=== PATIENT | female | born 1985 ===

== ENCOUNTER 2017-08-12 07:14 | Emergency (ER) | payer SELFPAY ==
[2017-08-12] MEDS ORDERED: CLINDAMYCIN 150 MG CAP PO ONE (07:55)
[2017-08-12] MEDS ORDERED: IBUPROFEN 600 MG TAB PO ONE (07:55)
[2017-08-12 08:00] VITALS: BP 119/93
--- NOTE | 2017-08-12 08:06 | ER Report ---
History and Physical Time Seen By MD: 07:30 Hx. of Stated Complaint: dental pain for 2 weeks HPI/ROS 32-year-old female presents to the emergency department complaining of left upper and lower posterior tooth pain ongoing and worsening for the past 2 weeks. She does not have a dentist. She states that she knows she needs to go to the dentist, but was waiting for the money she was set to get back from taxes. She plans to go to a dentist this week. She is able to take by mouth. No fever chills. No pain in her throat or posterior pharynx. No chest pain Remainder of the 14 system rev: Yes Allergies: Coded Allergies: No Known Drug Allergies (Unverified , 08/12/17) Home Meds Active Scripts Ibuprofen (IBUPROFEN) 600 Mg Tablet, 1 TAB PO Q6H for 30 Days, TAB Prov:FLY NGUYEN MD 08/12/17 Clindamycin Hcl (CLINDAMYCIN HCL) 300 Mg Capsule, 300 MG PO Q8H, #30 CAPSULE Prov:FLY NGUYEN MD 08/12/17 Reviewed Nurses Notes: Yes Old Medical Records Reviewed: Yes Smoking Status: Current: Every Day Smoker Exposure to Second Hand Smoke?: Yes Constitutional Vital Sign - Last 24 Hours 08/12/17 08/12/17 08/12/17 07:18 07:30 08:00 Temp 98.7 Pulse 68 65 63 Resp 18 B/P (MAP) 133/86 120/83 (95) 119/93 (102) Pulse Ox 98 96 97 O2 Delivery Room Air Physical Exam General appearance: Alert no distress. HEENT: TTP of the left posterior upper and lower molars. No abscess. Evidence of dental decay/carries. No trismus. Respiratory: Chest is non tender, lungs are clear to auscultation. Cardiac: Regular rate and rhythm, no murmurs DIFFERENTIAL DIAGNOSIS: After history and physical exam differential diagnosis was considered for dental abscess, dental carry Medical Decision Making ED Course/Re-evaluation ED Course 32-year-old female who presented to the emergency department with both left upper and lower or pain in her most posterior molars. The pain has been ongoing for the past 2 weeks. She has not seen a dentist for the pain, but plans to this week. I performed a local dental block on the affected teeth. I gave her ibuprofen and a dose of clindamycin in the emergency department, and wrote her prescriptions to go home for both. Procedure Dental block: 10ml of 1%lidocaine without epi was used to perform a local block of both the upper and lower left most posterior molars. The patient tolerated the procedure well. Decision to Disposition Date: Aug 12, 2017 Decision to Disposition Time: 08:07 Depart Departure Latest Vital Signs Vital Signs Date Time Temp Pulse Resp B/P (MAP) Pulse Ox O2 Delivery O2 Flow Rate FiO2 08/12/17 08:00 63 119/93 (102) 97 08/12/17 07:18 98.7 18 Room Air Impression: Primary Impression: Tooth pain Condition: Improved Disposition: HOME OR SELF-CARE New Scripts Ibuprofen (IBUPROFEN) 600 Mg Tablet 1 TAB PO Q6H for 30 Days, TAB Prov: FLY NGUYEN MD 08/12/17 Clindamycin Hcl (CLINDAMYCIN HCL) 300 Mg Capsule 300 MG PO Q8H, #30 CAPSULE Prov: FLY NGUYEN MD 08/12/17 Departure Forms: Medications Reconciliation, Patient Portal Information, ER Transition Record Patient Instructions: Toothache (ED) FLY NGUYEN MD Aug 12, 2017 08:06
[2017-08-12] MEDS ORDERED: IBUP600T22 PO (08:09)
[2017-08-12] MEDS ORDERED: CLIN300C99 PO (08:09)
== END 2017-08-12 08:29 | disposition home or self-care (01) ==
LOC: ER 07:21
DX: K08.89 Other specified disorders of teeth and supporting structures (principal)
CPT/HCPCS: 99283

== ENCOUNTER 2018-06-13 17:37 | Inpatient (IN) | payer SELFPAY ==
[~2018-06-13] VITALS: Ht 157.5 cm; Wt 54.4 kg
[~2018-06-13 17:37] MED LIST: CLIN300C99 PO; IBUP600T22 PO
--- NOTE | 2018-06-13 17:47 | ER Report ---
History and Physical Time Seen By MD: 17:47 (TYRONE FAN) HPI/ROS CHIEF COMPLAINT: Headache HISTORY OF PRESENT ILLNESS: This is a 32 to female presents to the emergency department for a headache. Patient states that her granddaughter was diagnosed with influenza last week, since then the patient has had nausea which started Saturday, since then she's had a progressively worsening headache. She's also had diarrhea. Patient states this is the worst headache she's ever had. Patient is tearful. She's had aches and chills. Fevers at home. She's been dosing with ibuprofen and Tylenol. No rashes, no meningismus. REVIEW OF SYSTEMS: Constitutional: As above. Eyes: No discharge. ENT: No sore throat. Cardiovascular: No chest pain, no palpitations. Respiratory: No cough, no shortness of breath. Gastrointestinal: As above. Genitourinary: No hematuria. Musculoskeletal: No back pain. Skin: No rashes. Neurological: As above. (TYRONE FAN) Allergies: Coded Allergies: Penicillins (Verified Allergy, Severe, NAUSEA/VOMITING, 06/13/18) morales (Verified Allergy, Severe, ANAPHYLAXIS, 06/13/18) Home Meds Discontinued Scripts Ibuprofen (IBUPROFEN) 600 Mg Tablet, 1 TAB PO Q6H for 30 Days, TAB Prov:FLY NGUYEN MD 08/12/17 Clindamycin Hcl (CLINDAMYCIN HCL) 300 Mg Capsule, 300 MG PO Q8H, #30 CAPSULE Prov:FLY NGUYEN MD 08/12/17 Past Medical/Surgical History Patient has a past medical and surgical history of . (TYRONE FAN) Reviewed Nurses Notes: Yes (TYRONE FAN) Smoking Status: Current: Every Day Smoker Exposure to Second Hand Smoke?: Yes (TYRONE FAN) Constitutional Vital Sign - Last 24 Hours 06/13/18 06/13/18 06/13/18 06/13/18 17:37 17:47 17:55 18:00 Temp 99.4 Pulse 100 108 Resp 16 B/P (MAP) 107/79 (88) 107/79 97/69 (78) Pulse Ox 98 98 O2 Delivery Room Air 06/13/18 06/13/18 06/13/18 06/13/18 18:07 18:30 18:37 18:42 Pulse 101 99 ??? B/P (MAP) 99/67 (78) Pulse Ox 96 96 06/13/18 06/13/18 06/13/18 06/13/18 19:00 19:12 19:30 19:42 Pulse 96 117 Resp 23 B/P (MAP) 99/63 (75) 98/64 (75) Pulse Ox 93 06/13/18 06/13/18 06/13/18 06/13/18 20:00 20:12 20:17 20:30 Pulse 105 ??? B/P (MAP) 97/65 (76) ???/??? (1665) Pulse Ox 89 06/13/18 06/13/18 06/13/18 06/13/18 20:32 20:47 20:47 20:58 Pulse ? 104 B/P (MAP) 89/56 (67) Pulse Ox 89 06/13/18 06/13/18 06/13/18 06/13/18 21:02 21:15 21:16 21:16 Pulse ??? 105 B/P (MAP) 91/57 (68) Pulse Ox 85 O2 Delivery Room Air O2 Flow Rate 2.0 06/13/18 06/13/18 06/13/18 06/13/18 21:17 21:32 21:37 21:50 Pulse ? 102 Resp 17 B/P (MAP) 93/57 (69) Pulse Ox 95 95 O2 Delivery Nasal Cannula O2 Flow Rate 2 06/13/18 06/13/18 06/13/18 06/13/18 21:52 22:00 22:07 22:22 Pulse 109 99 100 Resp 14 7 20 B/P (MAP) 94/64 (74) Pulse Ox 97 96 96 06/13/18 06/13/18 06/13/18 06/13/18 22:30 22:37 22:52 23:00 Pulse 91 98 Resp 18 19 B/P (MAP) 98/64 (75) 100/65 (77) Pulse Ox 96 97 06/13/18 06/13/18 06/13/18 06/13/18 23:07 23:22 23:27 23:30 Pulse 96 95 92 Resp 19 9 10 B/P (MAP) 102/71 (81) Pulse Ox 94 96 96 06/13/18 06/13/18 06/14/18 06/14/18 23:42 23:57 00:00 00:12 Pulse ? B/P (MAP) ???/??? (1665) 06/14/18 06/14/18 06/14/18 06/14/18 00:27 00:32 00:47 01:00 Pulse ? B/P (MAP) 120/78 (92) 06/14/18 06/14/18 06/14/18 01:02 01:30 01:32 Pulse 97 98 Resp 20 21 B/P (MAP) 112/76 (88) Pulse Ox 98 94 Intake and Output 06/13/18 06/13/18 06/14/18 15:00 23:00 07:00 Intake Total 2000 ml Balance 2000 ml (LULA WILD MD) Physical Exam General Appearance: The patient is alert, has no immediate need for airway protection and no signs of toxicity. Eyes: Pupils equal and round no pallor or injection. EOMs intact. ENT, Mouth: Mucous membranes are moist. Respiratory: There are no retractions, lungs are clear to auscultation. Cardiovascular: Regular rate and rhythm. Gastrointestinal: Abdomen is soft and non tender, no masses, bowel sounds normal. Neurological: Alert and oriented 4. Moving all extremities. Following all commands. No focal neuro deficits. Skin: Warm and dry, no rashes. Musculoskeletal: Neck is supple non tender. Extremities are nontender, nonswollen and full range of motion. DIFFERENTIAL DIAGNOSIS: After history and physical exam differential diagnosis was considered for headache including but not limited to subarachnoid hemorrhage, migraine headache, tension headache and infectious causes such as meningitis, pharyngitis and sinusitis. (TYRONE FAN-) Medical Decision Making Data Points Result Diagram: 06/14/18 0700 06/14/18 0700 Laboratory Hematology Test 06/13/18 17:43 06/13/18 17:58 06/13/18 19:56 Urine Color Yellow Urine Clarity Clear Urine pH 5.0 pH (4.8-9.5) Urine Specific [place] 1.021 Urine Protein Negative mg/dL (NEGATIVE) Urine Glucose (UA) Negative mg/dL (NEGATIVE) Urine Ketones Negative mg/dL (NEGATIVE) Urine Blood Small (NEGATIVE) Urine Nitrite Negative (NEGATIVE) Urine Bilirubin Negative (NEGATIVE) Urine Urobilinogen 4.0 mg/dL (0.2-1.9) Urine Leukocyte Esterase Trace (NEGATIVE) Urine RBC 19 /HPF (0-2/HPF) Urine WBC 33 /HPF (0-5/HPF) Urine Squamous Epithelial Cells Many /LPF (</=FEW) Urine Bacteria Moderate /HPF (NONE-FEW) Urine Mucus None /HPF (NONE-FEW) Red Blood Count 4.66 M/uL (4.17-5.56) Mean Corpuscular Volume 66.1 fL (80.0-96.0) Mean Corpuscular Hemoglobin 20.0 pg (26.0-33.0) Mean Corpuscular Hemoglobin Concent 30.2 g/dL (32.0-36.0) Red Cell Distribution Width 18.3 % (11.5-14.5) Mean Platelet Volume 9.2 fL (7.2-11.1) Neutrophils (%) (Auto) % (39.4-72.5) Lymphocytes (%) (Auto) % (17.6-49.6) Monocytes (%) (Auto) % (4.1-12.4) Eosinophils (%) (Auto) % (0.4-6.7) Basophils (%) (Auto) % (0.3-1.4) Nucleated RBC Relative Count (auto) /100WBC Neutrophils # (Auto) K/uL (2.0-7.4) Lymphocytes # (Auto) K/uL (1.3-3.6) Monocytes # (Auto) K/uL (0.3-1.0) Eosinophils # (Auto) K/uL (0.0-0.5) Basophils # (Auto) K/uL (0.0-0.1) Nucleated RBC Absolute Count (auto) K/uL Neutrophils % (Manual) 86 % (39.4-72.5) Band Neutrophils % 6 % Lymphocytes % (Manual) 4 % (17.6-49.6) Monocytes % (Manual) 4 % (4.1-12.4) Eosinophils % (Manual) 0 % (0.4-6.7) Basophils % (Manual) 0 % (0.3-1.4) Platelet Estimate Normal Hypochromasia 3+ Poikilocytosis 1+ Anisocytosis 1+ Microcytosis 3+ Target Cells 1+ Ovalocytes 1+ [place] Cells 1+ Sodium Level 135 mmol/L (137-145) Potassium Level 3.3 mmol/L (3.5-5.0) Chloride Level 102 mmol/L (98-107) Carbon Dioxide Level 25 mmol/L (22-31) Blood Urea Nitrogen 27 mg/dl (7-18) Creatinine 0.90 mg/dl (0.52-1.04) Glomerular Filtration Rate Calc > 60.0 Random Glucose 106 mg/dl (75-110) Calcium Level 9.0 mg/dl (8.4-10.2) Total Bilirubin 0.6 mg/dl (0.2-1.3) Aspartate Amino Transf (AST/SGOT) 40 U/L (0-35) Alanine Aminotransferase (ALT/SGPT) 27 U/L (0-56) Alkaline Phosphatase 130 U/L (0-126) Total Protein 7.0 g/dl (6.3-8.2) Albumin 3.7 g/dl (3.5-5.0) CSF Appearance Clear (CLEAR) CSF Color Colorless (COLORLESS) CSF WBC 7 /mm3 (0-5) CSF RBC 486 /mm3 CSF Glucose 54 mg/dl CSF Total Protein 57 mg/dl (15-50) Haemophilus influenzae B Antigen Negative (NEGATIVE) Neisseria meningitidis A/Y Antigen Negative (NEGATIVE) Neisseria meningitidis C/W135 Ag Negative (NEGATIVE) N. meningitidis B/E.coli K1 Ag Negative (NEGATIVE) Group B Streptococcus Antigen Negative (NEGATIVE) Streptococcus pneumoniae Antigen Negative (NEGATIVE) Chemistry Test 06/13/18 17:43 06/13/18 17:58 06/13/18 19:56 Urine Color Yellow Urine Clarity Clear Urine pH 5.0 pH (4.8-9.5) Urine Specific [place] 1.021 Urine Protein Negative mg/dL (NEGATIVE) Urine Glucose (UA) Negative mg/dL (NEGATIVE) Urine Ketones Negative mg/dL (NEGATIVE) Urine Blood Small (NEGATIVE) Urine Nitrite Negative (NEGATIVE) Urine Bilirubin Negative (NEGATIVE) Urine Urobilinogen 4.0 mg/dL (0.2-1.9) Urine Leukocyte Esterase Trace (NEGATIVE) Urine RBC 19 /HPF (0-2/HPF) Urine WBC 33 /HPF (0-5/HPF) Urine Squamous Epithelial Cells Many /LPF (</=FEW) Urine Bacteria Moderate /HPF (NONE-FEW) Urine Mucus None /HPF (NONE-FEW) White Blood Count 23.7 k/uL (4.5-11.0) Red Blood Count 4.66 M/uL (4.17-5.56) Hemoglobin 9.3 g/dL (12.0-16.0) Hematocrit 30.8 % (34.0-47.0) Mean Corpuscular Volume 66.1 fL (80.0-96.0) Mean Corpuscular Hemoglobin 20.0 pg (26.0-33.0) Mean Corpuscular Hemoglobin Concent 30.2 g/dL (32.0-36.0) Red Cell Distribution Width 18.3 % (11.5-14.5) Platelet Count 230 K/uL (150-450) Mean Platelet Volume 9.2 fL (7.2-11.1) Neutrophils (%) (Auto) % (39.4-72.5) Lymphocytes (%) (Auto) % (17.6-49.6) Monocytes (%) (Auto) % (4.1-12.4) Eosinophils (%) (Auto) % (0.4-6.7) Basophils (%) (Auto) % (0.3-1.4) Nucleated RBC Relative Count (auto) /100WBC Neutrophils # (Auto) K/uL (2.0-7.4) Lymphocytes # (Auto) K/uL (1.3-3.6) Monocytes # (Auto) K/uL (0.3-1.0) Eosinophils # (Auto) K/uL (0.0-0.5) Basophils # (Auto) K/uL (0.0-0.1) Nucleated RBC Absolute Count (auto) K/uL Neutrophils % (Manual) 86 % (39.4-72.5) Band Neutrophils % 6 % Lymphocytes % (Manual) 4 % (17.6-49.6) Monocytes % (Manual) 4 % (4.1-12.4) Eosinophils % (Manual) 0 % (0.4-6.7) Basophils % (Manual) 0 % (0.3-1.4) Platelet Estimate Normal Hypochromasia 3+ Poikilocytosis 1+ Anisocytosis 1+ Microcytosis 3+ Target Cells 1+ Ovalocytes 1+ [place] Cells 1+ Glomerular Filtration Rate Calc > 60.0 Calcium Level 9.0 mg/dl (8.4-10.2) Total Bilirubin 0.6 mg/dl (0.2-1.3) Aspartate Amino Transf (AST/SGOT) 40 U/L (0-35) Alanine Aminotransferase (ALT/SGPT) 27 U/L (0-56) Alkaline Phosphatase 130 U/L (0-126) Total Protein 7.0 g/dl (6.3-8.2) Albumin 3.7 g/dl (3.5-5.0) CSF Appearance Clear (CLEAR) CSF Color Colorless (COLORLESS) CSF WBC 7 /mm3 (0-5) CSF RBC 486 /mm3 CSF Glucose 54 mg/dl CSF Total Protein 57 mg/dl (15-50) Haemophilus influenzae B Antigen Negative (NEGATIVE) Neisseria meningitidis A/Y Antigen Negative (NEGATIVE) Neisseria meningitidis C/W135 Ag Negative (NEGATIVE) N. meningitidis B/E.coli K1 Ag Negative (NEGATIVE) Group B Streptococcus Antigen Negative (NEGATIVE) Streptococcus pneumoniae Antigen Negative (NEGATIVE) Urinalysis Test 06/13/18 17:43 Urine Color Yellow Urine Clarity Clear Urine pH 5.0 pH (4.8-9.5) Urine Specific [place] 1.021 Urine Protein Negative mg/dL (NEGATIVE) Urine Glucose (UA) Negative mg/dL (NEGATIVE) Urine Ketones Negative mg/dL (NEGATIVE) Urine Blood Small (NEGATIVE) Urine Nitrite Negative (NEGATIVE) Urine Bilirubin Negative (NEGATIVE) Urine Urobilinogen 4.0 mg/dL (0.2-1.9) Urine Leukocyte Esterase Trace (NEGATIVE) Urine RBC 19 /HPF (0-2/HPF) Urine WBC 33 /HPF (0-5/HPF) Urine Squamous Epithelial Cells Many /LPF (</=FEW) Urine Bacteria Moderate /HPF (NONE-FEW) Urine Mucus None /HPF (NONE-FEW) (LULA WILD MD) Microbiology Microbiology Date/Time Source Procedure Growth Status 06/13/18 19:56 Cerebrospinal Fluid Gram Stain - Final Resulted 06/13/18 19:56 Cerebrospinal Fluid CSF Culture Pending Resulted (LULA WILD MD) EKG/Imaging Imaging EXAMINATION: MRI brain without IV contrast MRI brain with IV contrast HISTORY: Headache, fever, abnormal red blood cells on lumbar puncture. COMPARISON: CT head from 06/13/2018. TECHNIQUE: Multi-planar, multi-sequence brain MRI was performed before and after IV gadolinium. CONTRAST: 12 mL of IV MultiHance gadolinium. FINDINGS: Brain volume: Normal. Sagittal midline structures: Normal. Ventricles: Normal. Acute ischemic changes: No diffusion restriction present to suggest acute ischemia. Hemorrhage: No acute hemorrhage or hemosiderin staining. Masses/edema: None. Enhancement: There is no abnormal intracranial enhancement. Wilkinson-white: Negative. White matter: Normal. Vessels: Normal. Extra-axial: None. Calvarium/scalp: Negative. Skull base: Negative. Visualized sinuses/orbits: Mild patchy mucosal thickening of the bilateral ethmoid air cells. Visualized upper neck: Negative. IMPRESSION: 1. No acute infarct, hemorrhage or intracranial mass lesion. 2. Mild nonobstructive inflammation of the bilateral ethmoid air cells. Report Dictated By: Agnieszka Alvarez MD at 06/14/2018 12:49 AM (LULA WILD MD) ED Course/Re-evaluation Clinical Indication for ER IV: Hydration, IV Access ED Course 06/13/2018 8:16:07 pm Procedure: Lumbar puncture. Indication: Headache. After verbal informed consent from patient explaining the risks including infection, bleeding, and neurologic damage, a lumbar puncture was performed after the patient was prepped and draped in the usual fashion. The back was anesthetized with 1% lidocaine. Approximately 4 cc of clear fluid was obtained. Opening pressure was not obtained. There were no complications. The procedure was performed by myself, Dr. Wild was at the bedside assisting. Decision to Disposition Date: Jun 13, 2018 Decision to Disposition Time: 21:00 Turned Over The care of the patient was turned over to Dr. Wild. ADRIANE Paz I authorize my typed signature that I authenticated this report. (TYRONE FAN-) Clinical Indication for ER IV: IV Access ED Course I assumed care of this patient from Tyrone at the end of his shift and helped with management during her entire stay. Lumbar puncture done by Tyrone, with myself in direct supervision. Clear fluid, normal rate, sent for CSF analysis. Came back with elevated RBC, WBC and Protein. Gram stain was negative for organisms, but increased white cells. Appeared consistent with viral meningitis. Discussed with Dr. Maxwell. Follow-up MRI done to further rule out possibility of occult subarrachnoid hemorrhage, which was negative. 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
[2018-06-13] MEDS ORDERED: NS(*) 0.9% 1000 ML BAG 1,000 ML IV ONE ×2 (18:02→19:15)
[2018-06-13] MEDS ORDERED: ONDANSETRON 4 MG/2 ML VIAL IVP ONE (18:05)
[2018-06-13] MEDS ORDERED: diphenhydrAMINE 50 MG/ML VIAL IVP ONE (18:05)
[2018-06-13 18:27] LABS: PLATELET COUNT, AUTOMATED 230 K/uL (150-450)
--- NOTE | 2018-06-13 18:59 | RADIOLOGY IMAGING REPORT ---
[place] [facility] [place] NAME: Lizbeth Morales : 1985 MR: [id number] V: [id number] EXAM DATE: ORDERING PHYSICIAN: DANIE FAN TECHNOLOGIST: [place] [facility] [place] : 1985 Visit/Account:[id number] Date of Sevice: 06/13/2018 CT Head without contrast Indication: Headache. Comparison: None available Technique: Axial CT images were obtained through the brain from the skull base to the vertex without administration of IV contrast. Reformatted coronal and sagittal images were also obtained. One of the following dose optimization techniques was utilized in the performance of this exam: autom ated exposure control; adjustment of the mA and/or kV according to the patient's size; or use of an i terative reconstruction technique. Specific details can be referenced in the facility's radiology CT exam operational policy. Findings: No evidence of mass, mass effect, or midline shift. No acute intracranial hemorrhage or acute territorial infarction. No extra-axial fluid collection or hydrocephalus. No abnormal density. Wilkinson/white matter differentiat ion appears normal. Bony structures show no fractures or lesions. Minimal mucosal thickening seen in the posterior left maxillary sinus. The remaining sinuses and mast oids visualized are clear. IMPRESSION: 1. No acute intracranial abnormality. 2. Minimal left maxillary sinus disease. Report Dictated By: Brian Greenwood at 06/13/2018 6:51 PM Report E-Signed By: Brian Greenwood at 06/13/2018 6:55 PM WSN:[id number]
[2018-06-13] MEDS ORDERED: MORPHINE 4 MG/ML SDV IVP ONE ×2 (19:15→20:20)
[2018-06-13] MEDS ORDERED: GADOBENATE 529MG/1ML 15ML VIAL IVP ONE (23:46)
--- NOTE | 2018-06-14 01:02 | RADIOLOGY IMAGING REPORT ---
FACILITY: [facility] PATIENT NAME: Lizbeth Morales : 1985 MR: [id number] V: [id number] EXAM DATE: ORDERING PHYSICIAN: LULA ULLOA TECHNOLOGIST: Location: [facility] Patient: Lizbeth Morales : 1985 Visit/Account:[id number] Date of Sevice: 06/13/2018 EXAMINATION: MRI brain without IV contrast MRI brain with IV contrast HISTORY: Headache, fever, abnormal red blood cells on lumbar puncture. COMPARISON: CT head from 06/13/2018. TECHNIQUE: Multi-planar, multi-sequence brain MRI was performed before and after IV gadolinium. CONTRAST: 12 mL of IV MultiHance gadolinium. FINDINGS: Brain volume: Normal. Sagittal midline structures: Normal. Ventricles: Normal. Acute ischemic changes: No diffusion restriction present to suggest acute ischemia. Hemorrhage: No acute hemorrhage or hemosiderin staining. Masses/edema: None. Enhancement: There is no abnormal intracranial enhancement. Wilkinson-white: Negative. White matter: Normal. Vessels: Normal. Extra-axial: None. Calvarium/scalp: Negative. Skull base: Negative. Visualized sinuses/orbits: Mild patchy mucosal thickening of the bilateral ethmoid air cells. Visualized upper neck: Negative. IMPRESSION: 1. No acute infarct, hemorrhage or intracranial mass lesion. 2. Mild nonobstructive inflammation of the bilateral ethmoid air cells. Report Dictated By: Agnieszka Alvarez MD at 06/14/2018 12:49 AM Report E-Signed By: Agnieszka Alvarez MD at 06/14/2018 12:58 AM WSN:[id number]
[2018-06-14] MEDS ORDERED: MORPHINE 4 MG/ML SDV IVP ONE (01:10)
[2018-06-14 02:27] VITALS: BP 111/67
[2018-06-14] MEDS ORDERED: KCL 2 MEQ/ML 20 MEQ/10 ML VIAL 20 MEQ in NS(*) 0.9% 1000 ML BAG 1,000 ML IV PRN (02:43)
[2018-06-14] MEDS ORDERED: ACYCLOVIR IVPB SCH (02:45)
[2018-06-14] MEDS ORDERED: NS 0.9% IVPB SCH (02:45)
[2018-06-14] MEDS ORDERED: cefTRIAXone 2 GM VIAL IVP SCH (02:45)
--- NOTE | 2018-06-14 02:59 | History & Physical ---
History of Present Illness Chief Complaint Headache History of Present Illness 32yo female with very little PMHx. She reports onset of N/V/diarrhea approximately 5 days ago. It was accompanied by diffuse headache, myalgias, and fever. The symptoms worsened over the next few days, especially the headache. She has not been able to eat or drink much. She denied any rashes. She felt she may have UTI because of some dysuria and was taking an OTC remedy without relief. She was exposed to at least one family member who was diagnosed with influenza. She was evaluated in the ER and found to have an elevated WBC count, anemia, pyuria, negative influenza screen, normal CT scan and MRI. She did have LP done. CSF analysis showed only 7 WBC, 486 RBC, glucose of 54 and slightly elevated protein at 57. Bacterial antigen panel is negative. Gram stain did not reveal any bacteria. She was recommended for admission. History Problems: (1) History of Status: Resolved Home Meds Discontinued Scripts Ibuprofen (IBUPROFEN) 600 Mg Tablet, 1 TAB PO Q6H for 30 Days, TAB Prov:FLY NGUYEN MD 08/12/17 Clindamycin Hcl (CLINDAMYCIN HCL) 300 Mg Capsule, 300 MG PO Q8H, #30 CAPSULE Prov:FLY NGUYEN MD 08/12/17 Allergies: Coded Allergies: Penicillins (Verified Allergy, Severe, NAUSEA/VOMITING, 06/13/18) morales (Verified Allergy, Severe, ANAPHYLAXIS, 06/13/18) Hx Smoking: Yes Smoking Status: Current: Every Day Smoker Exposure to Second Hand Smoke?: Yes Review of Systems Constitutional: Fever, Chills Neurological: Weakness Eyes: Photophobia Gastrointestinal: Nausea, Vomiting, Diarrhea; No Hematemesis, No Hematochezia, No Melena Genitourinary: Dysuria, Other (Menses have heavy flow for 2 days and then light for an additional 4-5 days) Exam Vital Signs Vital Signs Date Time Temp Pulse Resp B/P (MAP) Pulse Ox O2 Delivery O2 Flow Rate FiO2 06/14/18 02:27 101.3 102 16 111/67 (82) 97 Nasal Cannula 1.0 General Appearance: Alert, Awake, Other (appears in significant pain/prefers to be in dark room) Neuro: No Gross deficits Neck: No Masses, Other (significant resistance to ROM/neck and back pain with elevation of feet or anterior flexion of head) Cardiovascular: Regular Rate and Rhythm Respiratory: Clear to Auscultation Chest: No Tenderness GI: Abd Soft and Non-Tender (BS present) : No CVA Tenderness Lymph: No Adenopathy Extremities: Warm, Perfused Integumentary: Skin Intact without Lesion / Mass, Other (no rashes noted) Medical Decision Making Data Points Result Diagram: 06/13/18175706/13/181757 Item Value Date Time Albumin 3.7 g/dl 06/13/18 1758 Total Protein 7.0 g/dl 06/13/18 175 Alkaline Phosphatase 130 U/L H 06/13/18 175 Alanine Aminotransferase (ALT/SGPT) 27 U/L 06/13/18 1758 Aspartate Amino Transf (AST/SGOT) 40 U/L H 06/13/18 175 Total Bilirubin 0.6 mg/dl 06/13/181757 Calcium Level 9.0 mg/dl 06/13/181757 Streptococcus pneumoniae Antigen Negative 06/13/181955 Group B Streptococcus Antigen Negative 06/13/181955 N. meningitidis B/E.coli K1 Ag Negative 06/13/181955 Neisseria meningitidis C/W135 Ag Negative 06/13/181955 Neisseria meningitidis A/Y Antigen Negative 06/13/181955 Haemophilus influenzae B Antigen Negative 06/13/181955 Influenza Virus Type A (PCR) Negative 06/13/181815 Influenza Virus Type B (PCR) Negative 06/13/181815 CSF Total Protein 57 mg/dl H 06/13/181955 CSF Glucose 54 mg/dl 06/13/181955 CSF RBC 486 /mm3 06/13/181955 CSF WBC 7 /mm3 H 06/13/181955 CSF Color Colorless 06/13/181955 CSF Appearance Clear 06/13/181955 Urine Mucus None /HPF 06/13/18 174 Urine Bacteria Moderate /HPF H 06/13/18 1743 Urine Squamous Epithelial Cells Many /LPF H 06/13/18 1743 Urine WBC 33 /HPF 06/13/18 1743 Urine RBC 19 /HPF 06/13/18 1743 Urine Leukocyte Esterase Trace H 06/13/18 1743 Urine Urobilinogen 4.0 mg/dL H 06/13/18 174 Urine Bilirubin Negative 06/13/181742 Urine Nitrite Negative 06/13/18 174 Urine Blood Small 06/13/181742 Urine Ketones Negative mg/dL 06/13/181742 Urine Glucose (UA) Negative mg/dL 06/13/181742 Urine Protein Negative mg/dL 06/13/181742 Urine Specific [place] 1.021 06/13/18 174 Urine pH 5.0 pH 06/13/18 174 Urine Clarity Clear 06/13/181742 Urine Color Yellow 06/13/181742 [facility] *LIVE* [address] [facility] [place] [address] KASH HEATH M.D., DIRECTOR OF LABORATORY SERVICES KENDELL DOCKERY M.D., PATHOLOGIST RUN DATE: 06/13/18 Specimen Inquiry Report PAGE 1 RUN TIME: 2214 PATIENT: JEANMARIE MORALES Jair ACCT: [id number] LOC: [facility] U: [id number] AGE/SX: 32/F ROOM: RE06/13/[address]: LULA ULLOA MD : 1985 BED: DIS: STATUS: REG LOIS TLOC: SPEC #: [id number] NED: 06/13/18 STATUS: MANUEL REQ #: [id number] RECD: 06/13/[address]: DANIE FAN [facility] SOURCE: CSF ENTR: 06/13/18-[address]: DENA: ORDERED: CULT CSF & GS Procedure Result Verified GRAM STAIN Final 06/13/18 RARE WHITE BLOOD CELLS SEEN NO ORGANISMS SEEN CSF CULTURE PENDING EKG / Imaging Imaging PATIENT NAME: Jeanmarie Morales : 1985 MR: [id number] V: [id number] EXAM DATE: ORDERING PHYSICIAN: LULA ULLOA TECHNOLOGIST: Location: [facility] [place] Patient: Jeanmarie Morales : 1985 Visit/Account:[id number] Date of Sevice: 06/13/2018 EXAMINATION: MRI brain without IV contrast MRI brain with IV contrast HISTORY: Headache, fever, abnormal red blood cells on lumbar puncture. COMPARISON: CT head from 06/13/2018. TECHNIQUE: Multi-planar, multi-sequence brain MRI was performed before and after IV gadolinium. CONTRAST: 12 mL of IV MultiHance gadolinium. FINDINGS: Brain volume: Normal. Sagittal midline structures: Normal. Ventricles: Normal. Acute ischemic changes: No diffusion restriction present to suggest acute ischemia. Hemorrhage: No acute hemorrhage or hemosiderin staining. Masses/edema: None. Enhancement: There is no abnormal intracranial enhancement. Wilkinson-white: Negative. White matter: Normal. Vessels: Normal. Extra-axial: None. Calvarium/scalp: Negative. Skull base: Negative. Visualized sinuses/orbits: Mild patchy mucosal thickening of the bilateral ethmoid air cells. Visualized upper neck: Negative. IMPRESSION: 1. No acute infarct, hemorrhage or intracranial mass lesion. 2. Mild nonobstructive inflammation of the bilateral ethmoid air cells. Report Dictated By: Agnieszka Alvarez MD at 06/14/2018 12:49 AM Report E-Signed By: Agnieszka Alvarez MD at 06/14/2018 12:58 AM [id number] PATIENT NAME: Jeanmarie Morales : 1985 MR: [id number] V: [id number] EXAM DATE: ORDERING PHYSICIAN: DANIE FAN TECHNOLOGIST: Location: [facility] [place] Patient: Jeanmarie Morales : 1985 Visit/Account:[id number] Date of Sevice: 06/13/2018 CT Head without contrast Indication: Headache. Comparison: None available Technique: Axial CT images were obtained through the brain from the skull base to the vertex without administration of IV contrast. Reformatted coronal and sagittal images were also obtained. One of the following dose optimization techniques was utilized in the performance of this exam: automated exposure control; adjustment of the mA and/or kV according to the patient's size; or use of an iterative reconstruction technique. Specific details can be referenced in the facility's radiology CT exam operational policy. Findings: No evidence of mass, mass effect, or midline shift. No acute intracranial hemorrhage or acute territorial infarction. No extra-axial fluid collection or hydrocephalus. No abnormal density. Wilkinson/white matter differentiation appears normal. Bony structures show no fractures or lesions. Minimal mucosal thickening seen in the posterior left maxillary sinus. The remaining sinuses and mastoids visualized are clear. IMPRESSION: 1. No acute intracranial abnormality. 2. Minimal left maxillary sinus disease. Report Dictated By: Brian Greenwood at 06/13/2018 6:51 PM Report E-Signed By: Brian Greenwood at 06/13/2018 6:55 PM [id number] Assessment and Plan Problems: (1) Viral meningitis Status: Acute Assessment & Plan: It appears she may have an aseptic/viral meningitis. Her symptoms certainly sound good for an enterovirus (vs. possible influenza - recheck swab). Will admit for IV fluids, empiric IV acyclovir (until HSV PCR back and negative), pain meds, antiemetics, supportive care. Will also have her on IV Rocephin for possible UTI. Watch closely and modify therapy as needed. (2) UTI (urinary tract infection) Status: Acute Assessment & Plan: She has pyuria and symptoms. Culture obtained in ER. Will place on IV Rocephin. Modify regimen as needed. (3) ANEMIA, UNSPECIFIED Status: Chronic Assessment & Plan: Microcytic. I suspect she most likely has iron deficiency. Will check studies. Start iron replacement as needed. Watch counts and transfuse if necessary. Venous Thromboembolism Antithrombotics Is Pt On Any Antithrombotics?: No (Lumbar puncture done earlier today.) Exam Sepsis Risk: Sepsis Risk OSMANI DOYLE MD Jun 14, 2018 02:59
[2018-06-14] MEDS ORDERED: PCA LOCKBOX KEYS XX ONE (03:13)
[2018-06-14] MEDS: HYDROmorphone PCA 6 MG/30 ML IV PRN (03:46)
[2018-06-14] MEDS: KCL/NS* 20 MEQ/1000 ML PREMIX 1,000 ML IV SCH ×2 (03:46→16:27)
[2018-06-14] MEDS: ACETAMINOPHEN(*)1000 MG/100 ML 100 ML IVPB PRN ×3 (03:57→21:32)
[2018-06-14 04:00] VITALS: BP 98/61
[2018-06-14] MEDS ORDERED: OSELTAMIVIR PHOS 75 MG CAP PO SCH (04:25)
[2018-06-14 07:17] VITALS: BP 94/63
[2018-06-14 07:46] LABS: PLATELET COUNT, AUTOMATED 200 K/uL (150-450)
[2018-06-14 10:54] VITALS: BMI 21.9
[2018-06-14] MEDS: NS 0.9% IVPB SCH ×2 (11:01→19:01)
[2018-06-14] MEDS: ACYCLOVIR IVPB SCH ×2 (11:01→19:01)
[2018-06-14 14:07] VITALS: BP 102/68
[2018-06-14] MEDS: OSELTAMIVIR PHOS 75 MG CAP PO SCH (19:00)
[2018-06-14 19:07] VITALS: BP 98/66
[2018-06-14 23:00] VITALS: BP 108/76
[2018-06-15 00:10] VITALS: BP 102/62
[2018-06-15] MEDS ORDERED: cefTRIAXone 2 GM VIAL IVP SCH (02:30)
[2018-06-15] MEDS ORDERED: PCA LOCKBOX KEYS XX ONE ×2 (02:49→22:02)
[2018-06-15] MEDS: KCL/NS* 20 MEQ/1000 ML PREMIX 1,000 ML IV SCH ×3 (02:49→19:20)
[2018-06-15] MEDS: ACYCLOVIR IVPB SCH ×3 (02:50→18:34)
[2018-06-15] MEDS: NS 0.9% IVPB SCH ×3 (02:50→18:34)
[2018-06-15] MEDS: HYDROmorphone PCA 6 MG/30 ML IV PRN ×2 (02:51→22:02)
[2018-06-15 03:00] VITALS: BP 91/66
[2018-06-15] MEDS: OSELTAMIVIR PHOS 75 MG CAP PO SCH ×2 (05:57→18:33)
[2018-06-15 07:21] LABS: PLATELET COUNT, AUTOMATED 208 K/uL (150-450)
[2018-06-15] MEDS: PROMETHAZINE 25 MG/ML 1 ML AMP IVP PRN (07:27)
[2018-06-15] MEDS: ACETAMINOPHEN(*)1000 MG/100 ML 100 ML IVPB PRN (07:45)
[2018-06-15 07:47] VITALS: BP 119/77
--- NOTE | 2018-06-15 08:00 | NUR ---
0.2mg discrepancy from pump to vial. Difference in documentation exists from NOC RN to Day RN. Pump shows 0.8 infused. Vial has 5.0mg remaining. Addendum: 06/15/18 at 1414 by JENNIFER GARCIA RN Amended: Links added.
--- NOTE | 2018-06-15 14:40 | Hospitalist Progress Note ---
Subjective Progress Notes Subjective The patient is reporting continued neck pain, neck stiffness, head ache, light intolerance and nausea. She is starting to cough up more phlegm. Physical Exam Vital Signs Date Time Temp Pulse Resp B/P (MAP) Pulse Ox O2 Delivery O2 Flow Rate FiO2 06/15/18 14:00 94 06/15/18 12:30 16 06/15/18 07:47 98.7 92 119/77 (91) Nasal Cannula 1.0 Intake and Output 06/15/18 07:00 Intake Total 2898 ml Balance 2898 ml Intake Oral 900 ml IV Total 1998 ml # Voids 3 General Appearance: Awake, Other (Eyes covered with a cloth. Answers questions appropriately, but very quiet) Neck: Other (reports pain with flexion of neck) Cardiovascular: Regular Rate and Rhythm Respiratory: Clear to Auscultation Musculoskeletal: Other (No pain with hip flexion and then extension at the knee bilaterally) Extremities: No Edema Result Diagram: 06/15/1871406/15/18714 Assessment and Plan Problems: (1) Viral meningitis Status: Acute Assessment & Plan: It appears she may have an aseptic/viral meningitis. Her s ymptoms certainly sound good for an enterovirus, but repeat influenza test is positive for A. Getting empiric IV acyclovir (until HSV PCR back and negative), Tamiflu, pain meds, antiemetics, supportive care. Watch closely and modify therapy as needed. (2) UTI (urinary tract infection) Status: Acute Assessment & Plan: She has pyuria and symptoms. Culture obtained in ER and growing E. Coli. She is on IV Rocephin and will receive her last dose at about 0200 for a total of 3 doses. (3) ANEMIA, UNSPECIFIED Status: Chronic Assessment & Plan: She reports being told she was iron deficient about 15 years ago after the of her first child. She was on iron replacement, but hasn't for awhile. She reports continued menses. No reported blood in stool. Iron <10. Ferritin pending. Hgb 7.7, but stable. Will give a dose of Injectafer. She will need follow up with gynecology. Exam Sepsis Risk: No Definite Risk ELIZABETH KWAN MD Jun 15, 2018 14:40
[2018-06-15] MEDS ORDERED: FERRIC CARBOXY 750 MG SDV IVP ONE (15:00)
[2018-06-15 16:12] VITALS: BP 98/65
[2018-06-16] MEDS ORDERED: cefTRIAXone 2 GM VIAL IVP SCH (02:30)
[2018-06-16] MEDS: NS 0.9% IVPB SCH ×3 (02:53→20:02)
[2018-06-16] MEDS: ACYCLOVIR IVPB SCH ×3 (02:53→20:02)
[2018-06-16 02:55] VITALS: BP 100/70
[2018-06-16] MEDS: OSELTAMIVIR PHOS 75 MG CAP PO SCH ×2 (05:32→18:43)
[2018-06-16] MEDS: KCL/NS* 20 MEQ/1000 ML PREMIX 1,000 ML IV SCH ×2 (05:33→17:32)
[2018-06-16 06:20] LABS: PLATELET COUNT, AUTOMATED 199 K/uL (150-450)
[2018-06-16 07:10] VITALS: BP 94/60
[2018-06-16] MEDS ORDERED: PCA LOCKBOX KEYS XX PRN (07:20)
[2018-06-16 10:51] VITALS: BP 105/72
[2018-06-16 11:55] VITALS: BMI 21.9
[2018-06-16 12:04] VITALS: BMI 21.9
[2018-06-16 12:23] VITALS: BMI 21.9
--- NOTE | 2018-06-16 12:29 | Antimicrobial Stewardship ---
Antimicrobial Stewardship Empiricly appropriate: Yes (Ceftriaxone, Acyclovir, Tamiflu) Support empiric regimen: Yes Approriate Cultures done: Yes (Influenza A (+), UTI, Meningitis) IV to PO Opportunity: No Determine cumulative duration: Day 3 Determine standard duration: Multiple Indications: Influenza-Tamiflu x 5 d, UTI x 3-7 d, Meningitis 14d Comment 32 yo F who presented to the ED with significant headache, dysuria, diarrhea, aches/chills, (+) fever at home. WBC 23.7-->17.1-->5.8j Hgb 9-->7.5 Scr 0.8 Influenza A (+) on 06/14/18 CSF - bacterial antigens (-), HSV pending Brain MRI (-) UA (+), many squamous Epis--> pt is symptomatic Urine Culture- e.coli- sensitive to ceftriaxone Viral Meningitis, influenza, and UTI-- plan to continue antivirals for meningitis until HSV comes back, influenza treatment is 5 days, and UTI 3-7 days with a cephalosporin. Continue treatment and monitor closely. Working on pain control and tapering off [employer] pump to transition to oral anti-inflammatories and acetaminophen. Niesha Glaser, PharmD, [facility] NIESHA GLASER Jun 16, 2018 12:29
[2018-06-16] MEDS: ACETAMINOPHEN(*)1000 MG/100 ML 100 ML IVPB PRN ×2 (12:52→18:43)
[2018-06-16] MEDS: KETOROLAC 30 MG/ML VIAL IVP PRN ×3 (12:54→20:03)
[2018-06-16] MEDS ORDERED: PANTOPRAZOLE SOD 40 MG IV VIAL IVP SCH (13:00)
[2018-06-16 14:30] VITALS: BP 121/75
--- NOTE | 2018-06-16 15:25 | Hospitalist Progress Note ---
Subjective Progress Notes Subjective 32F admitted for aseptic meningitis, influenza. Continues to have significant photophobia and WARNER. Patient Complains of: Neurological: Other (photophobia, WARNER) Gastrointestinal: No Nausea, No Vomiting Physical Exam Vital Signs Date Time Temp Pulse Resp B/P (MAP) Pulse Ox O2 Delivery O2 Flow Rate FiO2 06/16/18 14:40 92 06/16/18 14:39 16 06/16/18 14:30 98.1 83 121/75 (90) Nasal Cannula 1.0 Intake and Output 06/16/18 06:59 Intake Total 1792 ml Balance 1792 ml Intake Oral 720 ml IV Total 1072 ml # Voids 4 General Appearance: Alert, Awake Neuro: No Gross deficits Cardiovascular: Normal Rhythm & Peripheral Pulses Respiratory: No Respiratory Distress GI: Soft and Non-Tender Musculoskeletal: No Weakness/Pain Extremities: Soft and Non Tender, Warm, Pulses, Perfused; No Edema Integumentary: Skin Intact without Lesion / Mass Result Diagram: 06/16/1853506/16/18535 Assessment and Plan Problems: (1) Viral meningitis Status: Acute Assessment & Plan: It appears she may have an aseptic/viral meningitis. Her symptoms certainly sound good for an enterovirus, but repeat influenza test is positive for A. Getting empiric IV acyclovir (until HSV PCR back and negative), Tamiflu, pain meds, antiemetics, supportive care. Watch closely and modify therapy as needed. (2) UTI (urinary tract infection) Status: Acute Assessment & Plan: She has pyuria and symptoms. Culture obtained in ER and growing E. Coli. She is on IV Rocephin and will receive her last dose at about 0200 for a total of 3 doses. (3) ANEMIA, UNSPECIFIED Status: Chronic Assessment & Plan: She reports being told she was iron deficient about 15 years ago after the of her first child. She was on iron replacement, but hasn't for awhile. She reports continued menses. No reported blood in stool. Iron <10. Ferritin pending. Hgb 7.7, but stable. Given one dose of Injectafer. Sh e will need follow up with gynecology. Exam Sepsis Risk: No Definite Risk PERRY KENDELL RUSH DO Jun 16, 2018 15:25
[2018-06-16 19:53] VITALS: BP 97/65
[2018-06-17] MEDS: ACYCLOVIR IVPB SCH ×3 (03:32→18:35)
[2018-06-17] MEDS: NS 0.9% IVPB SCH ×3 (03:32→18:35)
[2018-06-17 05:22] VITALS: BP 113/75
[2018-06-17] MEDS: OSELTAMIVIR PHOS 75 MG CAP PO SCH ×2 (05:30→17:29)
[2018-06-17] MEDS: KETOROLAC 30 MG/ML VIAL IVP PRN (05:30)
[2018-06-17] MEDS: PROMETHAZINE 25 MG/ML 1 ML AMP IVP PRN (05:30)
[2018-06-17 07:30] VITALS: BP 106/70
[2018-06-17] MEDS ORDERED: IBUPROFEN 600 MG TAB PO PRN (09:20)
[2018-06-17] MEDS ORDERED: ACETAMINOPHEN 500 MG TAB PO PRN (09:20)
[2018-06-17] MEDS ORDERED: CEPHALEXIN MONO 500 MG CAP PO SCH (09:30)
[2018-06-17 09:44] LABS: PLATELET COUNT, AUTOMATED 239 K/uL (150-450)
--- NOTE | 2018-06-17 11:31 | Hospitalist Progress Note ---
Subjective Progress Notes Subjective She appears very fatigued and pale. She reports she does not feel well. She had no acute events overnight. Patient Complains of: Cardiovascular: No: Chest Pain Respiratory: No: Shortness of Breath Physical Exam Vital Signs Date Time Temp Pulse Resp B/P (MAP) Pulse Ox O2 Delivery O2 Flow Rate FiO2 06/17/18 09:30 90 06/17/18 07:39 Room Air 06/17/18 07:39 16 06/17/18 07:30 97.4 60 106/70 (82) 06/16/18 14:30 1.0 Intake and Output 06/17/18 00:00 Intake Total 600 ml Balance 600 ml Intake Oral 500 ml IV Total 100 ml # Voids 4 General Appearance: Alert, Awake, No Acute Distress, Afebrile Neuro: No Gross deficits Cardiovascular: Regular Rate and Rhythm Respiratory: No Respiratory Distress, Clear to Auscultation GI: Soft and Non-Tender Extremities: Warm, Perfused; No Edema Psych: Alert & Oriented X3, Appropriate Mood & Affect Result Diagram: 06/17/1893706/17/18937 Assessment and Plan Problems: (1) Viral meningitis Status: Acute Assessment & Plan: It appears she may have an aseptic/viral meningitis. Her symptoms certainly sound good for an enterovirus, but repeat influenza test is positive for A. Getting empiric IV acyclovir (until HSV PCR back and negative), Tamiflu, pain meds, antiemetics, supportive care. Watch closely and modify therapy as needed. (2) UTI (urinary tract infection) Status: Acute Assessment & Plan: She has pyuria and symptoms. Culture obtained in ER and growing E. Coli. She was on IV Rocephin for three doses, and will be transitioned to oral Keflex for 5 more days. (3) ANEMIA, UNSPECIFIED Status: Chronic Assessment & Plan: She reports being told she was iron deficient about 15 years ago after the of her first child. She was on iron replacement, but hasn't for awhile. She reports continued menses. No reported blood in stool. Iron <10. Ferritin 33. Hgb 7.4. Given one dose of Injectafer 06/15. She will need follow up with gynecology. Recommended patient receive blood transfusion 06/17 secondary to fatigue and becoming symptomatic from anemia. She wants to think about transfusion and will let us know if she wants to proceed. Exam Sepsis Risk: No Definite Risk RENETTA MURPHY Jun 17, 2018 11:31
[2018-06-17 12:09] VITALS: BP 112/81
[2018-06-17 13:58] VITALS: Ht 157.5 cm; Wt 54.4 kg
[2018-06-17 18:30] VITALS: BP 107/68
[2018-06-17 19:27] VITALS: BP 107/74
[2018-06-17] MEDS: CEPHALEXIN MONO 500 MG CAP PO SCH (20:43)
[2018-06-17 23:25] VITALS: BP 112/82
[2018-06-18] MEDS: NS 0.9% IVPB SCH (03:49)
[2018-06-18] MEDS: ACYCLOVIR IVPB SCH (03:49)
[2018-06-18] MEDS ORDERED: NS(*) 0.9% 250 ML BAG 250 ML ONE (03:50)
[2018-06-18 04:17] VITALS: BP 107/76
[2018-06-18] MEDS: OSELTAMIVIR PHOS 75 MG CAP PO SCH (05:19)
[2018-06-18 06:16] LABS: PLATELET COUNT, AUTOMATED 284 K/uL (150-450)
[2018-06-18] MEDS: CEPHALEXIN MONO 500 MG CAP PO SCH (09:34)
[2018-06-18] MEDS ORDERED: ASCO-182 PO (09:55)
[2018-06-18] MEDS ORDERED: CEPH500C24 PO (09:55)
[2018-06-18] MEDS ORDERED: FERR325T24 PO (09:55)
--- NOTE | 2018-06-18 10:14 | Hospitalist Depart ---
Discharge Summary Reason for Hosp/Final Diag: (1) Viral meningitis Status: Acute Hospital Course & Plan: It appears she may have an aseptic/viral meningitis. Her symptoms certainly sound good for an enterovirus, but repeat influenza test was positive for A. She received empiric IV acyclovir (until HSV PCR back and is now negative), Tamiflu, pain meds, antiemetics, supportive care. (2) UTI (urinary tract infection) Status: Acute Hospital Course & Plan: She had pyuria and symptoms of UTI. Culture obtained in ER and growing E. Coli. She was on IV Rocephin for three doses, and was transitioned to oral Keflex for 5 additional days. (3) ANEMIA, UNSPECIFIED Status: Chronic Hospital Course & Plan: She reports being told she was iron deficient about 15 years ago after the of her first child. She was on iron replacement, but hasn't for awhile. She reports continued menses. No reported blood in stool. Iron <10. Ferritin 33. Hgb 7.4. Given one dose of Injectafer 06/15. She will need follow up with gynecology. Recommended patient receive blood transfusion 06/17 secondary to fatigue and becoming symptomatic from anemia, however the patient refused at this time. She reports she grew up [employer] and would like to continue to monitor at this time. She reports much improvement in symptoms this morning. She will follow up with PCP within one week. In the meantime, she will be started on Iron three times weekly and Vitamin C daily. Departure Latest Vital Signs Vital Signs 06/16/18 06/18/18 14:30 04:17 Temp 98.2 Pulse 55 Resp 18 B/P (MAP) 107/76 (86) Pulse Ox 91 O2 Delivery Room Air O2 Flow Rate 1.0 Weight (Pounds): 120 Result Diagram: 06/18/1852706/18/18527 Condition: Improved Discharge: Home, Self Care Discharge Instructions Home Meds Active Scripts Ascorbic Acid (VITAMIN C) 500 Mg Tablet, 500 MG PO DAILY, #30 TAB Prov:RENETTA MURPHYP 06/18/18 Ferrous Sulfate (IRON) 325 Mg Tablet, 325 MG PO 3XW, #30 TAB Prov:RENETTA MURPHY MANUFACTURING BUSINESS ANALYST 06/18/18 Cephalexin Monohydrate (CEPHALEXIN) 500 Mg Cap, 500 MG PO BID, #8 CAP Prov:RENETTA MURPHYP 06/18/18 Discontinued Scripts Ibuprofen (IBUPROFEN) 600 Mg Tablet, 1 TAB PO Q6H for 30 Days, TAB Prov:LFY NGUYEN MD 08/12/17 Clindamycin Hcl (CLINDAMYCIN HCL) 300 Mg Capsule, 300 MG PO Q8H, #30 CAPSULE Prov:FLY NGUYEN MD 08/12/17 Diet: Regular Activity: As Tolerated Special Instructions: Follow up within one week with healthcare provider. Start taking immediate release iron supplement three times weekly. Take Vitamin C 500mg daily to help with iron absorption. Use Tylenol or Ibuprofen for pain or fever. Take Keflex for 4 more days for UTI. Venous Thromboembolism Antithrombotics Is Pt On Any Antithrombotics?: No (Lumbar puncture done earlier today.) RENETTA MURPHY MANUFACTURING BUSINESS ANALYST Jun 18, 2018 10:14
== END 2018-06-18 11:20 | disposition home or self-care (01) | DRG 75 ==
LOC: ER 17:50 → MED 06-14 01:36
PROVIDERS: ADMIT Internal Medicine; ATTEND Internal Medicine
PROC: 009U3ZX Drainage of Spinal Canal, Percutaneous Approach, Diagnostic (ICD-10-PCS; principal; 2018-06-14)
DX: A87.9 Viral meningitis, unspecified (principal); N39.0 Urinary tract infection, site not specified; J10.1 Influenza due to other identified influenza virus with other respiratory manifestations; B96.20 Unspecified Escherichia coli [E. coli] as the cause of diseases classified elsewhere; D50.0 Iron deficiency anemia secondary to blood loss (chronic); H53.143 Visual discomfort, bilateral; Z88.0 Allergy status to penicillin
CPT/HCPCS: 36415; 70450; 70553; 81001; 82040; 82247; 82310; 82374; 82435; 82565; 82728; 82945; 82947; 83540; 83550; 84075; 84132; 84155; 84157; 84295; 84450; 84460; 84520; 85025; 85045; 87070; 87077; 87088; 87186; 87205; 87502; 87529; 87899; 89050; 96361; 96374; 96375; 96376; 99285; A9577; C9113; J0131; J0133; J0696; J1170; J1200; J1439; J1885; J2270; J2405; J2550; J3480; J7030; J7050